=== PATIENT | male | born 1990 | race Caucasian/White ===

== ENCOUNTER 2022-03-05 16:16 | Inpatient (IN) | payer MEDICAID, OTHER ==
[~2022-03-05] VITALS: Ht 177.8 cm; Wt 68.8 kg
[2022-03-05] MEDS ORDERED: normal saline 1000ML IV soln IV ONE (16:40)
[2022-03-05] MEDS ORDERED: CefTRIAXone 2gm/NS 100ml IVPB 100 ML IV ONE (16:40)
[2022-03-05 16:44] LABS: BASOPHILS # (AUTO) 0.1 X10'3 (0-0.2); BASOPHILS % (AUTO) 1.5 % (0-1); EOSINOPHILS # (AUTO) 0.1 X10'3 (0-0.9); EOSINOPHILS % (AUTO) 2.8 % (0-6); HEMATOCRIT 39.9 % (42.0-52.0); HEMOGLOBIN 13.5 g/dl (14.0-17.9); LYMPHOCYTES # (AUTO) 1.9 X10'3 (1.1-4.8); LYMPHOCYTES % (AUTO) 40.9 % (21-51); MEAN CORPUSCULAR HEMOGLOBIN 32.7 PG (27.0-31.0); MEAN CORPUSCULAR VOLUME 96.3 FL (78-98); MEAN PLATELET VOLUME 6.9 FL (7.4-10.4); MONOCYTES # (AUTO) 0.3 X10'3 (0-0.9); MONOCYTES % (AUTO) 6.3 % (2-12); NEUTROPHILS # (AUTO) 2.3 X10'3 (1.8-7.7); NEUTROPHILS % (AUTO) 48.5 % (42-75); PLATELET COUNT 228 X10'3 (140-440); RED BLOOD COUNT 4.14 X10'6 (4.70-6.10); RED CELL DISTRIBUTION WIDTH 13.2 % (11.5-14.5); WHITE BLOOD COUNT 4.7 X10'3 (4.5-11.0)
[2022-03-05] MEDS ORDERED: antivenin, crotalidae fab inj 4 VIAL in normal saline 250ml IV soln 250 ML IV ONE ×2 (17:00)
[2022-03-05] MEDS ORDERED: antivenin, crotalidae fab inj 4 VIAL in normal saline 250ml IV soln 250 ML IV SCH ×2 (17:00)
[2022-03-05] MEDS ORDERED: nicotine 14mg patch - 24hr TD ONE (17:15)
[2022-03-05 17:19] LABS: ALANINE AMINOTRANSFERASE 40 U/L (12-78); ALBUMIN/GLOBULIN RATIO 1.3 (1.1-1.5); ALKALINE PHOSPHATASE 50 IU/L (46-116); ANION GAP 15 (8-16); ASPARTATE AMINO TRANSFERASE 42 U/L (10-37); BILIRUBIN,TOTAL 0.3 MG/DL (0.1-1.0); BLOOD UREA NITROGEN 16 MG/DL (7-18); BUN/CREATININE RATIO 15.1 (5.4-32.0); CALCIUM 8.6 MG/DL (8.5-10.1); CHLORIDE 104 MMOL/L (99-107); CREATININE 1.06 MG/DL (0.60-1.10); GLUCOSE 89 MG/DL (70-104); POTASSIUM 3.7 MMOL/L (3.5-5.1); SODIUM 140 MMOL/L (135-145); TOTAL CARBON DIOXIDE 20.8 MMOL/L (24-32); TOTAL PROTEIN 7.2 G/DL (6.4-8.2); eGFR 80 ML/MIN
[2022-03-05 17:23] LABS: APTT 28 SECONDS (22-32); D-DIMER 0.29 MG/L FEU (0-0.50)
[2022-03-05] MEDS ORDERED: diphenhydrAMINE 50 mg/ml inj IV ONE ×3 (17:40→21:20)
[2022-03-05] MEDS ORDERED: famotidine/PF 10 mg/ml inj IV ONE (17:40)
[2022-03-05] MEDS ORDERED: tranexamic acid 100mg/ml inj. IV ONE (17:50)
[2022-03-05] MEDS ORDERED: normal saline 1000ML IV soln IVB ONE (17:50)
[2022-03-05] MEDS ORDERED: ondansetron/PF 4mg/2ml inj IV ONE (17:50)
[2022-03-05] MEDS ORDERED: methylPREDNISolone sod succ 125mg/2ml vial IV ONE ×2 (17:50→21:20)
[2022-03-05 18:20] LABS: CREATINE KINASE 309 U/L (39-308)
--- NOTE | 2022-03-05 19:00 | NUR ---
Patient's arm assessed and marked where swelling had reached. Right arm appears moderately edematous at this time.
[2022-03-05] MEDS ORDERED: acetaminophen 325mg tablet PO PRN ×2 (20:00)
[2022-03-05] MEDS ORDERED: POTASSIUM BICARB 20meq eff tab 20 MEQ TABLET.EFF PO PRN ×2 (20:00)
[2022-03-05] MEDS ORDERED: morphine 4 MG/ML inj SYRINge IV PRN (20:00)
[2022-03-05] MEDS ORDERED: morphine 2 MG/ML inj. syringe IV PRN (20:00)
[2022-03-05] MEDS ORDERED: ondansetron/PF 4mg/2ml inj IV PRN (20:00)
--- NOTE | 2022-03-05 20:00 | NUR ---
Patient's right arm appears to be decreasing in overall width of swelling but not length.
--- NOTE | 2022-03-05 21:00 | NUR ---
Patient's right arm appears unchanged from previous assessment. Swelling has not grown.
--- NOTE | 2022-03-05 21:08 | NUR ---
[facility] RN CALLED ER FOR PACKER AND CARRY OUT TO ASK THAT PT'S ARM/HAND BE MARKED TO DELINEATE SWELLING AND THAT HIS HAND BE ELEVATED ALSO
[2022-03-05] MEDS ORDERED: antivenin, crotalidae fab inj 2 VIAL in normal saline 250ml IV soln 250 ML IV ONE ×2 (21:30)
[2022-03-05] MEDS: methylPREDNISolone sod succ 125mg/2ml vial IV SCH (21:30)
[2022-03-05] MEDS: acetaminophen 325mg tablet PO ONE ×4 (21:44→21:46)
[2022-03-05] MEDS: NICOTINE POLACRILEX 2 MG LOZENGE BC PRN ×2 (21:45→22:56)
--- NOTE | 2022-03-05 22:00 | NUR ---
Patient's arm assessed and continues to be observed decreasing in overall swelling. Patient also states he feels like his arm has continued to become less swollen.
[2022-03-05] MEDS ORDERED: NO HOME MEDS (22:38)
--- NOTE | 2022-03-06 00:24 | NUR ---
Patient's arm assessed and appears unchanged from previous assessment.
[2022-03-06] MEDS: NICOTINE POLACRILEX 2 MG LOZENGE BC PRN ×2 (00:30→07:20)
[2022-03-06 01:50] LABS: MEAN PLATELET VOLUME 6.9 FL (7.4-10.4)
[2022-03-06 01:52] LABS: BASOPHILS % (AUTO) 0.1 % (0-1); EOSINOPHILS % (AUTO) 0.1 % (0-6); HEMATOCRIT 38.3 % (42.0-52.0); HEMOGLOBIN 13.1 g/dl (14.0-17.9); LYMPHOCYTES # (AUTO) 0.4 X10'3 (1.1-4.8); LYMPHOCYTES % (AUTO) 6.7 % (21-51); MEAN CORPUSCULAR HEMOGLOBIN 33.4 PG (27.0-31.0); MEAN CORPUSCULAR HGB CONC 34.3 g/dL (33.0-36.5); MEAN CORPUSCULAR VOLUME 97.5 FL (78-98); MONOCYTES % (AUTO) 0.6 % (2-12); NEUTROPHILS # (AUTO) 5.1 X10'3 (1.8-7.7); NEUTROPHILS % (AUTO) 92.5 % (42-75); PLATELET COUNT 189 X10'3 (140-440); RED BLOOD COUNT 3.93 X10'6 (4.70-6.10); RED CELL DISTRIBUTION WIDTH 13.2 % (11.5-14.5); WHITE BLOOD COUNT 5.5 X10'3 (4.5-11.0)
[2022-03-06 02:04] LABS: ALBUMIN 3.5 G/DL (3.4-5.0); ANION GAP 4 (8-16); BLOOD UREA NITROGEN 14 MG/DL (7-18); BUN/CREATININE RATIO 15.1 (5.4-32.0); CHLORIDE 109 MMOL/L (99-107); CREATININE 0.93 MG/DL (0.60-1.10); GLUCOSE 175 MG/DL (70-104); MAGNESIUM 1.9 MG/DL (1.5-2.4); POTASSIUM 4.1 MMOL/L (3.5-5.1); SODIUM 134 MMOL/L (135-145); TOTAL CARBON DIOXIDE 21.1 MMOL/L (24-32); eGFR > 90 ML/MIN
[2022-03-06 02:05] LABS: APTT 29 SECONDS (22-32)
--- NOTE | 2022-03-06 02:45 | NUR ---
Patient's right arm assessed and swelling around knuckles appears to be decreasing. Patient states it appears to him the swelling is decreasing as well. Patient appears in no active distress.
--- NOTE | 2022-03-06 05:30 | NUR ---
Patient's right arm assessed and appears unchanged from previous assessment. Patient reports no changes.
--- NOTE | 2022-03-06 06:56 | NUR ---
report to jeremy stephen.
[2022-03-06 08:00] VITALS: BP 110/66
[2022-03-06] MEDS ORDERED: K and/or MAG REPLACEMENT MC SCH (08:00)
[2022-03-06] MEDS: methylPREDNISolone sod succ 125mg/2ml vial IV SCH (08:12)
[2022-03-06 11:01] VITALS: BP 112/62
--- NOTE | 2022-03-06 12:25 | NUR ---
Discharge education given with all questions answered including watching for s/s of worsening symptoms. Sling provided to encourage elevating right arm. IV x2 removed; cannulas intact. Pt ambulated to lobby with significant other.
== END 2022-03-06 12:20 | disposition home or self-care (01) | DRG 918 ==
LOC: ER 16:17 → ED HOLD 20:58 → CICU 2S 03-06 07:35
PROVIDERS: ADMIT Internal Medicine; ATTEND Internal Medicine
DX: T63.091A Toxic effect of venom of other snake, accidental (unintentional), initial encounter (principal); T78.40XA Allergy, unspecified, initial encounter; F17.210 Nicotine dependence, cigarettes, uncomplicated; T50.6X5A Adverse effect of antidotes and chelating agents, initial encounter; Y92.89 Other specified places as the place of occurrence of the external cause
CPT/HCPCS: 36415; 71045; 80048; 80053; 82550; 83735; 84145; 85025; 85379; 85384; 85610; 85730; 87081; 93005; 96365; 96366; 96368; 96374; 96375; 96376; 99291; 99292; G0378; J0696; J0840; J1200; J2405; J2930; J3490; J7030; J7050

== ENCOUNTER 2022-06-12 21:41 | Emergency (ER) | payer OTHER ==
[~2022-06-12] VITALS: Ht 177.8 cm; Wt 65.9 kg
[~2022-06-12 21:41] MED LIST: NO HOME MEDS
[2022-06-12] MEDS ORDERED: ketorolac trometh. 30mg/ml inj. IM ONE (22:30)
[2022-06-13 00:12] VITALS: BP 118/76
== END 2022-06-13 00:14 | disposition home or self-care (01) ==
LOC: ER 21:44
DX: S30.810A Abrasion of lower back and pelvis, initial encounter (principal); F17.200 Nicotine dependence, unspecified, uncomplicated; Z88.8 Allergy status to other drugs, medicaments and biological substances; W11.XXXA Fall on and from ladder, initial encounter; Y93.89 Activity, other specified; Y92.89 Other specified places as the place of occurrence of the external cause; Y99.8 Other external cause status
CPT/HCPCS: 72131; 72192; 96372; 99284; J1885